=== PATIENT | female | born 1950 | race Caucasian/White ===

== ENCOUNTER 2019-01-26 12:04 | Inpatient (IN) ==
[2019-01-26] MEDS ORDERED: Ondansetron 4 MG/2 ML VIAL IVP PRN (14:19)
[2019-01-26] MEDS ORDERED: Naloxone 0.4 MG/ML INJ IVP PRN (14:19)
[2019-01-26] MEDS ORDERED: Dextrose Gel 15 GM/37.5 ML TUBE PO PRN ×2 (14:22)
[2019-01-26] MEDS ORDERED: *HR* Dextrose 50 % in Water (Syg) 50 ML SYRINGE IVP PRN (14:22)
[2019-01-26] MEDS ORDERED: D5% in Water 1,000 ML IVC PRN (14:22)
[2019-01-26] MEDS ORDERED: D5% in Lactated Ringers 1,000 ML IVC SCH (14:22)
[2019-01-26] MEDS ORDERED: Levalbuterol 1 PUFF INHALER IH PRN (14:40)
[2019-01-26 15:00] LABS: Basophils % 0.2 %; Hematocrit 36.4 % (35.3-44.9); Hemoglobin 12.2 g/dL (11.5-15.4); Immature Granulocytes % 0.7 % (0-4); Lymphocytes # 1.3 K/mcL (0.6-4.6); Lymphocytes % 6.2 %; Mean Corpuscular HGB Conc 33.5 g/dL (31.6-35.5); Mean Corpuscular Hemoglobin 26.5 pg (28.0-33.3); Mean Platelet Volume 9.7 fL (9.4-12.4); Monocytes # 0.5 K/mcL (0.0-1.3); Monocytes % 2.3 %; Neutrophils # 18.9 K/mcL (1.6-8.9); Platelet Count 257 K/mcL (140-400); Red Blood Count 4.61 M/mcL (3.82-4.97); Red Cell Distribution Width 14.3 % (11.5-14.5); Segmented Neutrophils % 90.6 %; White Blood Count 20.8 K/mcL (4.3-11.1)
[2019-01-26 15:10] LABS: INR 1.1
[2019-01-26 15:12] LABS: Activated Partial Thrombo Time 30.6 Seconds (26.0-36.0)
[2019-01-26 15:19] LABS: Chol/HDL Ratio 5.5 (0-4.9); Magnesium 1.7 mg/dL (1.6-2.6); Phosphorous 2.3 mg/dL (2.7-4.5)
[2019-01-26 15:20] LABS: BUN/Creatinine Ratio 10 (6-26); Blood Urea Nitrogen 6 mg/dL (8-23); Calcium 8.8 mg/dL (8.6-10.3); Carbon Dioxide 29 mEq/L (23-29); Chloride 90 mEq/L (98-107); Glucose 107 mg/dL (70-105); Osmolality,Calculated 266 (280-300); Potassium 3.6 mEq/L (3.5-5.1); Sodium 129 mEq/L (136-145); eGFR For African Americans > 60 (> 60); eGFR For Non-African Americans > 60 (> 60)
[2019-01-26 15:28] LABS: Troponin I 0.04 ng/mL (< 0.04)
[2019-01-26] MEDS: 0.9 % Sodium Chloride 1,000 ML IVC SCH (16:14)
[2019-01-26 16:21] LABS: Estimated Average Glucose 114 mg/dl
[2019-01-26 16:24] LABS: Lactate Dehydrogenase 193 Units/L (140-271)
[2019-01-26 16:30] LABS: ABG Base Excess 3 mEq/L (-2 to 3); ABG HCO3 28 mEq/L (21-27); ABG Oxygen Saturation 94 % (95-98); ABG PCO2 44 mmHg (35-45); ABG PH 7.41 pH Units (7.32-7.45); ABG PO2 71 mmHg (85-104); ABG TCO2 29 mEq/L (20-26)
[2019-01-26] MEDS: Piperacillin/Tazobactam 3.375 GM in 0.9 % Sodium Chloride Mini Bag 100 ML IVPB SCH (18:43)
[2019-01-26] MEDS: Insulin LISPRO 300 UNITS/3 ML VIAL SQ SCH ×2 (18:59→23:34)
[2019-01-26 19:11] LABS: Albumin 3.7 g/dL (3.5-5.7); Albumin/Globulin Ratio 1.4 (1.1-2.2); Bilirubin,Direct 0.1 mg/dL (0.0-0.2); Bilirubin,Indirect 0.3 mg/dL (0.0-1.2); Bilirubin,Total 0.4 mg/dL (0.3-1.0); Globulin 2.6 g/dL (2.4-3.5); Total Protein 6.3 g/dL (6.4-8.9)
[2019-01-26] MEDS: Budesonide/Formoterol 160/4.5 1 PUFF INH IH SCH (20:02)
[2019-01-26] MEDS ORDERED: Acetaminophen IV 1,000 MG/100 ML INFUS..BTL IVPB ONE (21:16)
[2019-01-26] MEDS ORDERED: Acetaminophen IV 500 MG/50 ML INFUS..BTL IVPB ONE (23:09)
[2019-01-27] MEDS: Piperacillin/Tazobactam 3.375 GM in 0.9 % Sodium Chloride Mini Bag 100 ML IVPB SCH ×3 (02:57→20:00)
[2019-01-27] MEDS: 0.9 % Sodium Chloride 1,000 ML IVC SCH (02:57)
[2019-01-27] MEDS ORDERED: Acetaminophen IV 1,000 MG/100 ML INFUS..BTL IVPB ONE (04:09)
[2019-01-27] MEDS: Insulin LISPRO 300 UNITS/3 ML VIAL SQ SCH ×3 (05:20→19:21)
[2019-01-27 05:38] LABS: Bilirubin,Urine Negative (Negative); Blood,Urine Negative (Negative); Clarity,Urine Clear (Clear); Color,Urine Yellow (Yellow); Glucose,Urine (UA) Normal (Normal); Ketones,Urine Negative (Negative); Leukocyte Esterase,Urine Negative (Negative); Nitrite,Urine Negative (Negative); Protein,Urine Negative (Neg-Trace); Urobilinogen,Urine Normal (Normal)
[2019-01-27] MEDS: Budesonide/Formoterol 160/4.5 1 PUFF INH IH SCH (07:22)
[2019-01-27 07:34] LABS: Basophils % 0.1 %; Eosinophils % 0.1 %; Hematocrit 32.3 % (35.3-44.9); Hemoglobin 10.9 g/dL (11.5-15.4); Immature Granulocytes % 0.5 % (0-4); Lymphocytes # 1.2 K/mcL (0.6-4.6); Lymphocytes % 5.2 %; Mean Corpuscular HGB Conc 33.7 g/dL (31.6-35.5); Mean Corpuscular Volume 80.1 fL (83.0-100.0); Mean Platelet Volume 9.7 fL (9.4-12.4); Monocytes # 0.5 K/mcL (0.0-1.3); Monocytes % 2.2 %; Neutrophils # 21.8 K/mcL (1.6-8.9); Platelet Count 242 K/mcL (140-400); Red Blood Count 4.03 M/mcL (3.82-4.97); Red Cell Distribution Width 14.7 % (11.5-14.5); Segmented Neutrophils % 91.9 %; White Blood Count 23.7 K/mcL (4.3-11.1)
[2019-01-27 08:03] LABS: BUN/Creatinine Ratio 12 (6-26); Blood Urea Nitrogen 7 mg/dL (8-23); Calcium 8.6 mg/dL (8.6-10.3); Carbon Dioxide 29 mEq/L (23-29); Chloride 94 mEq/L (98-107); Glucose 112 mg/dL (70-105); Magnesium 1.6 mg/dL (1.6-2.6); Osmolality,Calculated 273 (280-300); Phosphorous 3.8 mg/dL (2.7-4.5); Potassium 3.3 mEq/L (3.5-5.1); Sodium 132 mEq/L (136-145); eGFR For African Americans > 60 (> 60); eGFR For Non-African Americans > 60 (> 60)
[2019-01-27] MEDS ORDERED: Metoprolol XL (24 HR) Succ 25 MG TAB.ER.24H PO SCH (09:00)
[2019-01-27] MEDS ORDERED: D5% in 0.9% NACL 1,000 ML IVC SCH (10:30)
[2019-01-27] MEDS ORDERED: Isovue-370 500 ML BOTTLE IVP ONE (11:57)
[2019-01-27] MEDS: *HR* Labetalol 20 MG/4 ML SYRINGE IVP PRN ×2 (11:59→14:27)
[2019-01-27 12:18] LABS: ABG Base Excess 3 mEq/L (-2 to 3); ABG HCO3 29 mEq/L (21-27); ABG Oxygen Saturation 91 % (95-98); ABG PCO2 49 mmHg (35-45); ABG PH 7.38 pH Units (7.32-7.45); ABG PO2 63 mmHg (85-104); ABG TCO2 31 mEq/L (20-26)
[2019-01-27] MEDS ORDERED: Isovue-300 50ML VIAL ONE ×2 (13:50→17:32)
[2019-01-27] MEDS ORDERED: cefOXitin 1,000 MG, 0.9 % Sodium Chloride 1,000 ML IR ONE (14:00)
[2019-01-27] MEDS ORDERED: Morphine Sulfate 2 MG/ML SYRINGE IVP PRN (14:39)
[2019-01-27] MEDS ORDERED: Pantoprazole 40 MG VIAL IVP SCH (14:39)
[2019-01-27] MEDS ORDERED: Perflutren Lipid Microsphere 1.3 ML in 0.9 % Sodium Chloride 8.7 ML IVP ONE (15:53)
[2019-01-27] MEDS ORDERED: CefOXitin 1,000 MG VIAL ONE (16:37)
[2019-01-27] MEDS ORDERED: Lidocaine HCL 4 ML Topical Solution (Laryng-O-Jet Kit Sterile Pak) TP ONE (16:47)
[2019-01-27] MEDS ORDERED: Lidocaine -MPF 2% 2 ML VIAL ONE (16:48)
[2019-01-27] MEDS ORDERED: *HR* Propofol 200 MG/20 ML VIAL IVP ONE (16:48)
[2019-01-27] MEDS ORDERED: *HR* Rocuronium Bromide 50 MG/5 ML VIAL ONE (16:48)
[2019-01-27] MEDS ORDERED: *HR* FentaNYL (PF) 100 MCG/2 ML VIAL ONE ×2 (16:48→16:52)
[2019-01-27] MEDS ORDERED: Ondansetron 4 MG/2 ML VIAL ONE (16:48)
[2019-01-27] MEDS ORDERED: Dexamethasone 4 MG/ML VIAL ONE (16:48)
[2019-01-27] MEDS ORDERED: *HR* Midazolam HCl 2 MG/2 ML VIAL ONE (16:48)
[2019-01-27] MEDS ORDERED: Heparin 1,000 UNITS/500 mL 500 ML ONE (16:50)
[2019-01-27] MEDS ORDERED: Norepinephrine 4 MG in 0.9 % Sodium Chloride 250 ML IVC SCH (17:00)
[2019-01-27] MEDS ORDERED: *HR* Vasopressin 20 UNIT/ML VIAL ONE (17:03)
[2019-01-27] MEDS ORDERED: *HR* Metoprolol 5 MG/5 ML VIAL IVP ONE (18:02)
[2019-01-27] MEDS ORDERED: Ketorolac 30 MG/ML VIAL ONE (18:41)
[2019-01-27] MEDS ORDERED: Neostigmine Methylsulfate 3 MG/3 ML SYRINGE ONE (18:45)
[2019-01-27] MEDS ORDERED: Dextrose Gel 15 GM/37.5 ML TUBE PO PRN ×2 (19:25)
[2019-01-27] MEDS ORDERED: *HR* Labetalol 20 MG/4 ML SYRINGE IVP PRN (19:25)
[2019-01-27] MEDS ORDERED: *HR* Dextrose 50 % in Water (Syg) 50 ML SYRINGE IVP PRN (19:25)
[2019-01-27] MEDS ORDERED: D5% in Water 1,000 ML IVC PRN (19:25)
[2019-01-27] MEDS ORDERED: Levalbuterol 1 PUFF INHALER IH PRN (19:25)
[2019-01-27] MEDS ORDERED: Ondansetron 4 MG/2 ML VIAL IVP PRN (19:25)
[2019-01-27] MEDS ORDERED: Naloxone 0.4 MG/ML INJ IVP PRN (19:25)
[2019-01-27] MEDS ORDERED: Potassium Chloride 40 MEQ/200 ML BAG IVPB PRN (19:37)
[2019-01-27] MEDS ORDERED: Potassium Phosphate 44 MEQ in 0.9 % Sodium Chloride 250 ML IVPB PRN (19:37)
[2019-01-27] MEDS: D5% in 0.9% NACL 1,000 ML IVC SCH (21:19)
[2019-01-28] MEDS: Piperacillin/Tazobactam 3.375 GM in 0.9 % Sodium Chloride Mini Bag 100 ML IVPB SCH ×3 (02:52→19:35)
[2019-01-28 03:58] LABS: Hematocrit 31.3 % (35.3-44.9); Hemoglobin 10.2 g/dL (11.5-15.4); Mean Corpuscular HGB Conc 32.6 g/dL (31.6-35.5); Mean Corpuscular Hemoglobin 27.2 pg (28.0-33.3); Mean Corpuscular Volume 83.5 fL (83.0-100.0); Mean Platelet Volume 10.3 fL (9.4-12.4); Platelet Count 196 K/mcL (140-400); Red Blood Count 3.75 M/mcL (3.82-4.97); White Blood Count 23.5 K/mcL (4.3-11.1)
[2019-01-28 04:18] LABS: Magnesium 2.3 mg/dL (1.6-2.6)
[2019-01-28 04:32] LABS: Thyroid Stimulating Hormone 3.148 mcIU/mL (0.340-5.600)
[2019-01-28 04:55] LABS: Lymphocytes # 0.9 K/mcL (0.6-4.6); Monocytes # 0.5 K/mcL (0.0-1.3); Neutrophils # 20.7 K/mcL (1.6-8.9); Platelet Estimate Normal (Normal); Reactive Lymphocytes Present (Not Present)
[2019-01-28 04:58] LABS: BUN/Creatinine Ratio 15 (6-26); Blood Urea Nitrogen 11 mg/dL (8-23); Calcium 8.7 mg/dL (8.6-10.3); Carbon Dioxide 29 mEq/L (23-29); Chloride 98 mEq/L (98-107); Glucose 163 mg/dL (70-105); Osmolality,Calculated 279 (280-300); Phosphorous 2.5 mg/dL (2.7-4.5); Potassium 4.3 mEq/L (3.5-5.1); Sodium 133 mEq/L (136-145); eGFR For African Americans > 60 (> 60); eGFR For Non-African Americans > 60 (> 60)
[2019-01-28] MEDS: Insulin LISPRO 300 UNITS/3 ML VIAL SQ SCH ×5 (05:58→22:05)
[2019-01-28] MEDS: Metoprolol XL (24 HR) Succ 25 MG TAB.ER.24H PO SCH (08:38)
[2019-01-28] MEDS: Pantoprazole 40 MG VIAL IVP SCH (09:52)
[2019-01-28] MEDS: Furosemide 20 MG/2 ML VIAL IVP SCH (09:53)
[2019-01-28] MEDS: Budesonide/Formoterol 160/4.5 1 PUFF INH IH SCH ×2 (11:50→20:00)
[2019-01-28] MEDS: Aspirin Enteric Coated 81 MG Tablet PO SCH (11:58)
[2019-01-28] MEDS: D5% in 0.9% NACL 1,000 ML IVC SCH (16:10)
[2019-01-28 16:49] LABS: Phosphorous 3.5 mg/dL (2.7-4.5)
[2019-01-29 02:45] LABS: BUN/Creatinine Ratio 20 (6-26); Blood Urea Nitrogen 12 mg/dL (8-23); Calcium 8.7 mg/dL (8.6-10.3); Carbon Dioxide 29 mEq/L (23-29); Chloride 100 mEq/L (98-107); Glucose 121 mg/dL (70-105); Osmolality,Calculated 283 (280-300); Potassium 3.8 mEq/L (3.5-5.1); Sodium 136 mEq/L (136-145); eGFR For African Americans > 60 (> 60); eGFR For Non-African Americans > 60 (> 60)
[2019-01-29 02:48] LABS: Magnesium 2.1 mg/dL (1.6-2.6); Phosphorous 3.1 mg/dL (2.7-4.5)
[2019-01-29] MEDS: Piperacillin/Tazobactam 3.375 GM in 0.9 % Sodium Chloride Mini Bag 100 ML IVPB SCH ×3 (04:39→20:17)
[2019-01-29] MEDS: Budesonide/Formoterol 160/4.5 1 PUFF INH IH SCH ×2 (07:39→20:18)
[2019-01-29] MEDS: Insulin LISPRO 300 UNITS/3 ML VIAL SQ SCH ×4 (07:55→21:12)
[2019-01-29] MEDS: Pantoprazole 40 MG VIAL IVP SCH (08:08)
[2019-01-29] MEDS: Metoprolol XL (24 HR) Succ 25 MG TAB.ER.24H PO SCH (08:08)
[2019-01-29] MEDS: Furosemide 20 MG/2 ML VIAL IVP SCH ×3 (08:08→17:10)
[2019-01-29] MEDS: Aspirin Enteric Coated 81 MG Tablet PO SCH (08:08)
[2019-01-29 08:33] LABS: Basophils % 0.2 %; Eosinophils # 0.2 K/mcL (0.0-0.6); Eosinophils % 1.6 %; Hematocrit 29.7 % (35.3-44.9); Hemoglobin 9.3 g/dL (11.5-15.4); Immature Granulocytes % 0.3 % (0-4); Lymphocytes # 1.9 K/mcL (0.6-4.6); Lymphocytes % 15.7 %; Mean Corpuscular HGB Conc 31.3 g/dL (31.6-35.5); Mean Corpuscular Hemoglobin 26.6 pg (28.0-33.3); Mean Corpuscular Volume 84.9 fL (83.0-100.0); Mean Platelet Volume 10.1 fL (9.4-12.4); Monocytes # 0.6 K/mcL (0.0-1.3); Monocytes % 4.7 %; Neutrophils # 9.2 K/mcL (1.6-8.9); Platelet Count 207 K/mcL (140-400); Red Cell Distribution Width 15.5 % (11.5-14.5); Segmented Neutrophils % 77.5 %; White Blood Count 11.8 K/mcL (4.3-11.1)
[2019-01-29] MEDS ORDERED: Furosemide 20 MG/2 ML VIAL IVP ONE (09:59)
[2019-01-29 13:26] LABS: VBG Ionized Calcium 1.05 mmol/L (1.15-1.35)
[2019-01-29] MEDS: *HR* Heparin 5,000 UNIT/ML VIAL SQ SCH ×2 (15:55→20:17)
[2019-01-29] MEDS: Calcium Gluconate 1gm/50mL 1 GM/50 ML BAG IVPB PRN (17:10)
[2019-01-30 02:07] LABS: Basophils % 0.4 %; Eosinophils # 0.3 K/mcL (0.0-0.6); Eosinophils % 3.6 %; Hematocrit 31.4 % (35.3-44.9); Hemoglobin 9.9 g/dL (11.5-15.4); Immature Granulocytes % 0.6 % (0-4); Lymphocytes # 1.8 K/mcL (0.6-4.6); Lymphocytes % 23.5 %; Mean Corpuscular HGB Conc 31.5 g/dL (31.6-35.5); Mean Corpuscular Hemoglobin 26.5 pg (28.0-33.3); Mean Corpuscular Volume 84.2 fL (83.0-100.0); Mean Platelet Volume 9.5 fL (9.4-12.4); Monocytes # 0.4 K/mcL (0.0-1.3); Monocytes % 5.7 %; Neutrophils # 5.1 K/mcL (1.6-8.9); Platelet Count 230 K/mcL (140-400); Red Blood Count 3.73 M/mcL (3.82-4.97); Red Cell Distribution Width 15.4 % (11.5-14.5); Segmented Neutrophils % 66.2 %; White Blood Count 7.7 K/mcL (4.3-11.1)
[2019-01-30 02:13] LABS: VBG Ionized Calcium 1.04 mmol/L (1.15-1.35)
[2019-01-30 02:26] LABS: BUN/Creatinine Ratio 19 (6-26); Blood Urea Nitrogen 12 mg/dL (8-23); Calcium 8.9 mg/dL (8.6-10.3); Carbon Dioxide 32 mEq/L (23-29); Chloride 97 mEq/L (98-107); Glucose 108 mg/dL (70-105); Magnesium 1.9 mg/dL (1.6-2.6); Osmolality,Calculated 284 (280-300); Phosphorous 3.4 mg/dL (2.7-4.5); Potassium 3.7 mEq/L (3.5-5.1); Sodium 137 mEq/L (136-145); eGFR For African Americans > 60 (> 60); eGFR For Non-African Americans > 60 (> 60)
[2019-01-30] MEDS: Calcium Gluconate 1gm/50mL 1 GM/50 ML BAG IVPB PRN (04:14)
[2019-01-30] MEDS: Piperacillin/Tazobactam 3.375 GM in 0.9 % Sodium Chloride Mini Bag 100 ML IVPB SCH ×3 (04:15→19:34)
[2019-01-30] MEDS: *HR* Heparin 5,000 UNIT/ML VIAL SQ SCH ×2 (05:21→13:40)
[2019-01-30] MEDS: Pantoprazole 40 MG VIAL IVP SCH (07:52)
[2019-01-30] MEDS: Metoprolol XL (24 HR) Succ 25 MG TAB.ER.24H PO SCH (07:52)
[2019-01-30] MEDS: Furosemide 20 MG/2 ML VIAL IVP SCH ×2 (07:52→16:53)
[2019-01-30] MEDS: Aspirin Enteric Coated 81 MG Tablet PO SCH (07:52)
[2019-01-30] MEDS: Insulin LISPRO 300 UNITS/3 ML VIAL SQ SCH ×4 (07:52→19:35)
[2019-01-30] MEDS: Budesonide/Formoterol 160/4.5 1 PUFF INH IH SCH ×2 (11:41→19:41)
[2019-01-30] MEDS: Bisacodyl 10 MG RECTAL SUPPOSITORY RC SCH (13:41)
[2019-01-30 17:19] LABS: VBG Ionized Calcium 1.12 mmol/L (1.15-1.35)
[2019-01-31] MEDS: *HR* Heparin 5,000 UNIT/ML VIAL SQ SCH ×4 (01:16→20:09)
[2019-01-31] MEDS: Piperacillin/Tazobactam 3.375 GM in 0.9 % Sodium Chloride Mini Bag 100 ML IVPB SCH ×3 (03:25→20:08)
[2019-01-31 04:12] LABS: Basophils % 0.4 %; Eosinophils # 0.2 K/mcL (0.0-0.6); Eosinophils % 1.7 %; Hematocrit 34.7 % (35.3-44.9); Hemoglobin 11.3 g/dL (11.5-15.4); Immature Granulocytes % 0.7 % (0-4); Lymphocytes # 1.9 K/mcL (0.6-4.6); Lymphocytes % 17.6 %; Mean Corpuscular HGB Conc 32.6 g/dL (31.6-35.5); Mean Corpuscular Hemoglobin 26.3 pg (28.0-33.3); Mean Corpuscular Volume 80.9 fL (83.0-100.0); Mean Platelet Volume 9.6 fL (9.4-12.4); Monocytes # 0.8 K/mcL (0.0-1.3); Monocytes % 7.1 %; Neutrophils # 7.9 K/mcL (1.6-8.9); Platelet Count 268 K/mcL (140-400); Red Blood Count 4.29 M/mcL (3.82-4.97); Red Cell Distribution Width 15.5 % (11.5-14.5); Segmented Neutrophils % 72.5 %; White Blood Count 10.9 K/mcL (4.3-11.1)
[2019-01-31 04:27] LABS: BUN/Creatinine Ratio 22 (6-26); Blood Urea Nitrogen 14 mg/dL (8-23); Calcium 9.5 mg/dL (8.6-10.3); Carbon Dioxide 32 mEq/L (23-29); Chloride 93 mEq/L (98-107); Glucose 125 mg/dL (70-105); Osmolality,Calculated 284 (280-300); Phosphorous 4.8 mg/dL (2.7-4.5); Potassium 3.4 mEq/L (3.5-5.1); Sodium 136 mEq/L (136-145); eGFR For African Americans > 60 (> 60); eGFR For Non-African Americans > 60 (> 60)
[2019-01-31] MEDS: Metoprolol XL (24 HR) Succ 25 MG TAB.ER.24H PO SCH (07:25)
[2019-01-31] MEDS: Pantoprazole 40 MG VIAL IVP SCH (07:25)
[2019-01-31] MEDS: Bisacodyl 10 MG RECTAL SUPPOSITORY RC SCH (07:25)
[2019-01-31] MEDS: Aspirin Enteric Coated 81 MG Tablet PO SCH (07:25)
[2019-01-31] MEDS: Furosemide 20 MG/2 ML VIAL IVP SCH (07:26)
[2019-01-31] MEDS: Insulin LISPRO 300 UNITS/3 ML VIAL SQ SCH ×5 (07:31→20:09)
[2019-01-31] MEDS: Budesonide/Formoterol 160/4.5 1 PUFF INH IH SCH ×2 (07:50→19:54)
[2019-01-31] MEDS ORDERED: 0.9 % Sodium Chloride 250 ML ONE (08:25)
[2019-01-31] MEDS ORDERED: Insulin LISPRO 300 UNITS/3 ML VIAL SQ SCH (21:00)
[2019-02-01] MEDS: Insulin LISPRO 300 UNITS/3 ML VIAL SQ SCH ×3 (00:59→11:59)
[2019-02-01] MEDS: Piperacillin/Tazobactam 3.375 GM in 0.9 % Sodium Chloride Mini Bag 100 ML IVPB SCH ×2 (03:07→11:02)
[2019-02-01] MEDS: *HR* Heparin 5,000 UNIT/ML VIAL SQ SCH ×2 (05:53→14:27)
[2019-02-01 06:32] LABS: Basophils % 0.4 %; Eosinophils # 0.4 K/mcL (0.0-0.6); Eosinophils % 3.9 %; Hemoglobin 10.7 g/dL (11.5-15.4); Immature Granulocytes % 1.6 % (0-4); Lymphocytes # 2.1 K/mcL (0.6-4.6); Lymphocytes % 21.8 %; Mean Corpuscular HGB Conc 32.4 g/dL (31.6-35.5); Mean Corpuscular Hemoglobin 26.6 pg (28.0-33.3); Mean Corpuscular Volume 81.9 fL (83.0-100.0); Mean Platelet Volume 9.6 fL (9.4-12.4); Monocytes # 0.6 K/mcL (0.0-1.3); Monocytes % 6.3 %; Neutrophils # 6.3 K/mcL (1.6-8.9); Platelet Count 285 K/mcL (140-400); Red Blood Count 4.03 M/mcL (3.82-4.97); Red Cell Distribution Width 15.7 % (11.5-14.5); White Blood Count 9.5 K/mcL (4.3-11.1)
[2019-02-01 06:33] LABS: VBG Ionized Calcium 1.05 mmol/L (1.15-1.35)
[2019-02-01 06:52] LABS: BUN/Creatinine Ratio 24 (6-26); Blood Urea Nitrogen 16 mg/dL (8-23); Carbon Dioxide 28 mEq/L (23-29); Chloride 97 mEq/L (98-107); Glucose 124 mg/dL (70-105); Magnesium 2.1 mg/dL (1.6-2.6); Osmolality,Calculated 289 (280-300); Phosphorous 3.8 mg/dL (2.7-4.5); Potassium 3.3 mEq/L (3.5-5.1); Sodium 138 mEq/L (136-145); eGFR For African Americans > 60 (> 60); eGFR For Non-African Americans > 60 (> 60)
[2019-02-01] MEDS: Calcium Gluconate 1gm/50mL 1 GM/50 ML BAG IVPB PRN (08:05)
[2019-02-01] MEDS: Aspirin Enteric Coated 81 MG Tablet PO SCH (08:05)
[2019-02-01] MEDS: Bisacodyl 10 MG RECTAL SUPPOSITORY RC SCH (08:05)
[2019-02-01] MEDS: Metoprolol XL (24 HR) Succ 25 MG TAB.ER.24H PO SCH (08:05)
[2019-02-01] MEDS: Pantoprazole 40 MG VIAL IVP SCH (08:05)
[2019-02-01] MEDS ORDERED: Furosemide 40 MG TABLET PO SCH (09:00)
[2019-02-01] MEDS: Budesonide/Formoterol 160/4.5 1 PUFF INH IH SCH (11:02)
[2019-02-01 12:51] LABS: Magnesium 2.1 mg/dL (1.6-2.6); Potassium 3.5 mEq/L (3.5-5.1)
[2019-02-01] MEDS ORDERED: Iopamidol 125 ML INFUS..BTL ONE (13:37)
[2019-02-01] MEDS ORDERED: Heparin 1,000 UNITS/500 mL 500 ML ONE (13:37)
[2019-02-01] MEDS ORDERED: 0.9 % Sodium Chloride 1,000 ML ONE (13:37)
[2019-02-01] MEDS ORDERED: *HR* Heparin 10,000 UNIT/10 ML VIAL ONE (13:37)
[2019-02-01] MEDS ORDERED: Nitroglycerin 1,000 MCG/10 ML VIAL IV ONE (13:38)
[2019-02-01] MEDS ORDERED: *HR* FentaNYL (PF) 100 MCG/2 ML VIAL ONE (15:15)
[2019-02-01] MEDS ORDERED: *HR* Midazolam HCl 2 MG/2 ML VIAL ONE (15:15)
[2019-02-01 18:30] VITALS: BP 155/86
== END 2019-02-01 19:09 | disposition home health service (06) | DRG 853 ==
LOC: 2NENU → SUATTDRO 13:40 → ICNU 01-27 18:29 → 2NNU 01-28 15:44
PROVIDERS: ADMIT Internal Medicine Nephrology; ATTEND Internal Medicine

== ENCOUNTER 2019-12-28 13:39 | Inpatient (IN) ==
[2019-12-28] MEDS ORDERED: Naloxone 0.4 MG/ML INJ IVP PRN (16:04)
[2019-12-28 16:23] LABS: Adenovirus Not Detected (Not Detect); Coronavirus 229E Not Detected (Not Detect); Coronavirus HKU1 Not Detected (Not Detect); Coronavirus NL63 Not Detected (Not Detect); Coronavirus OC43 Not Detected (Not Detect)
[2019-12-28 16:24] LABS: Bordetella Pertussis Not Detected (Not Detect); Chlamydophila pneumoniae Not Detected (Not Detect); Human Metapneumovirus Not Detected (Not Detect); Human Rhinovirus/Enterovirus Not Detected (Not Detect); Influenza A Subtype 2009 H1 Not Detected (Not Detect); Influenza B Not Detected (Not Detect); Mycoplasma pneumoniae Not Detected (Not Detect); Parainfluenza Virus 1 Not Detected (Not Detect); Parainfluenza Virus 2 Not Detected (Not Detect); Parainfluenza Virus 3 Not Detected (Not Detect); Parainfluenza Virus 4 Not Detected (Not Detect); Respiratory Syncytial Virus Not Detected (Not Detect); SARS-CoV-2 Not Detected (Not Detect)
[2019-12-28 17:45] LABS: Troponin I 0.08 ng/mL (< 0.04)
[2019-12-28] MEDS ORDERED: Ondansetron ODT 4 MG TAB.RAPDIS SL PRN (17:47)
[2019-12-28] MEDS: cefTRIAXone 1,000 MG in Water for inj. (sterile) 10 ML IVP SCH (18:53)
[2019-12-28] MEDS: 0.9 % Sodium Chloride 1,000 ML IVC SCH (18:54)
[2019-12-29 02:09] LABS: Basophils # 0.1 K/mcL (0.0-0.2); Basophils % 0.4 %; Eosinophils # 1.1 K/mcL (0.0-0.6); Eosinophils % 7.4 %; Hematocrit 35.7 % (35.3-44.9); Hemoglobin 11.4 g/dL (11.5-15.4); Immature Granulocytes % 0.9 % (0-4); Lymphocytes # 2.1 K/mcL (0.6-4.6); Lymphocytes % 15.2 %; Mean Corpuscular HGB Conc 31.9 g/dL (31.6-35.5); Mean Corpuscular Hemoglobin 27.5 pg (28.0-33.3); Mean Platelet Volume 10.2 fL (9.4-12.4); Monocytes # 0.6 K/mcL (0.0-1.3); Monocytes % 4.1 %; Neutrophils # 10.2 K/mcL (1.6-8.9); Nucleated Red Blood Cells 0.1 /100 WBC (0); Platelet Count 191 K/mcL (140-400); Red Blood Count 4.15 M/mcL (3.82-4.97); Red Cell Distribution Width 14.3 % (11.5-14.5); White Blood Count 14.1 K/mcL (4.3-11.1)
[2019-12-29 02:26] LABS: Calcium 8.3 mg/dL (8.6-10.3); Potassium 3.4 mEq/L (3.5-5.1)
[2019-12-29] MEDS ORDERED: Ipratropium/Albuterol Neb 3 ML IH PRN (04:28)
[2019-12-29] MEDS ORDERED: *HR* Heparin 5,000 UNIT/ML VIAL SQ SCH (06:00)
[2019-12-29 06:52] LABS: Magnesium 1.9 mg/dL (1.6-2.6); Troponin I 0.07 ng/mL (< 0.04)
[2019-12-29] MEDS: Budesonide/Formoterol 160/4.5 1 PUFF INH IH SCH ×2 (07:32→21:49)
[2019-12-29] MEDS: Aspirin Enteric Coated 81 MG Tablet PO SCH (07:59)
[2019-12-29] MEDS: cefTRIAXone 1,000 MG in Water for inj. (sterile) 10 ML IVP SCH (08:06)
[2019-12-29] MEDS: 0.9 % Sodium Chloride 1,000 ML IVC SCH (08:06)
[2019-12-29] MEDS: Gentamicin Oint 15 GM TUBE TP SCH (16:02)
[2019-12-29] MEDS: *HR* Heparin 5,000 UNIT/ML VIAL SQ SCH (17:19)
[2019-12-30 02:06] LABS: Basophils % 0.4 %; Eosinophils # 0.8 K/mcL (0.0-0.6); Eosinophils % 8.4 %; Hematocrit 31.9 % (35.3-44.9); Hemoglobin 10.2 g/dL (11.5-15.4); Immature Granulocytes % 0.3 % (0-4); Lymphocytes # 1.7 K/mcL (0.6-4.6); Lymphocytes % 16.8 %; Mean Corpuscular Volume 87.6 fL (83.0-100.0); Mean Platelet Volume 10.8 fL (9.4-12.4); Monocytes # 0.4 K/mcL (0.0-1.3); Monocytes % 3.8 %; Platelet Count 156 K/mcL (140-400); Red Blood Count 3.64 M/mcL (3.82-4.97); Red Cell Distribution Width 14.1 % (11.5-14.5); Segmented Neutrophils % 70.3 %; White Blood Count 9.9 K/mcL (4.3-11.1)
[2019-12-30 02:23] LABS: BUN/Creatinine Ratio 23 (6-26); Blood Urea Nitrogen 18 mg/dL (8-23); Calcium 8.7 mg/dL (8.6-10.3); Carbon Dioxide 26 mEq/L (23-29); Chloride 103 mEq/L (98-107); Creatine Kinase 142 Units/L (30-223); Glucose 124 mg/dL (70-105); Osmolality,Calculated 289 (280-300); Potassium 3.8 mEq/L (3.5-5.1); Sodium 138 mEq/L (136-145); eGFR For African Americans > 60 (> 60); eGFR For Non-African Americans > 60 (> 60)
[2019-12-30] MEDS: *HR* Heparin 5,000 UNIT/ML VIAL SQ SCH ×2 (05:56→17:42)
[2019-12-30] MEDS: Budesonide/Formoterol 160/4.5 1 PUFF INH IH SCH ×2 (08:01→21:23)
[2019-12-30] MEDS: Aspirin Enteric Coated 81 MG Tablet PO SCH (09:05)
[2019-12-30] MEDS: Gentamicin Oint 15 GM TUBE TP SCH (09:06)
[2019-12-30] MEDS ORDERED: Mag Hydrox/Al Hydrox/Simeth 30 ML UDC PO PRN (10:15)
[2019-12-30 10:59] LABS: Alanine Aminotransferase 18 Units/L (7-52); Albumin 3.3 g/dL (3.5-5.7); Albumin/Globulin Ratio 1.3 (1.1-2.2); Alkaline Phosphatase 107 Units/L (34-104); Aspartate Amino Transferase 21 Units/L (13-39); Bilirubin,Indirect 0.3 mg/dL (0.0-1.0); Bilirubin,Total 0.3 mg/dL (0.3-1.0); Globulin 2.5 g/dL (2.4-3.5); Total Protein 5.8 g/dL (6.4-8.9)
[2019-12-30] MEDS: Acetaminophen 325 MG TABLET PO PRN (19:40)
[2019-12-30] MEDS ORDERED: QUEtiapine Fumarate 25 MG TABLET PO PRN (20:20)
[2019-12-31] MEDS: *HR* Heparin 5,000 UNIT/ML VIAL SQ SCH ×2 (05:26→17:00)
[2019-12-31 06:48] LABS: Basophils # 0.1 K/mcL (0.0-0.2); Basophils % 0.7 %; Eosinophils # 0.7 K/mcL (0.0-0.6); Eosinophils % 10.2 %; Hematocrit 32.8 % (35.3-44.9); Hemoglobin 10.6 g/dL (11.5-15.4); Immature Granulocytes % 0.8 % (0-4); Lymphocytes # 1.9 K/mcL (0.6-4.6); Lymphocytes % 26.7 %; Mean Corpuscular HGB Conc 32.3 g/dL (31.6-35.5); Mean Corpuscular Hemoglobin 27.8 pg (28.0-33.3); Mean Corpuscular Volume 86.1 fL (83.0-100.0); Mean Platelet Volume 10.8 fL (9.4-12.4); Monocytes # 0.4 K/mcL (0.0-1.3); Monocytes % 5.5 %; Platelet Count 152 K/mcL (140-400); Red Blood Count 3.81 M/mcL (3.82-4.97); Red Cell Distribution Width 14.1 % (11.5-14.5); Segmented Neutrophils % 56.1 %; White Blood Count 7.1 K/mcL (4.3-11.1)
[2019-12-31 07:00] LABS: BUN/Creatinine Ratio 21 (6-26); Blood Urea Nitrogen 14 mg/dL (8-23); Calcium 9.1 mg/dL (8.6-10.3); Carbon Dioxide 28 mEq/L (23-29); Chloride 103 mEq/L (98-107); Glucose 111 mg/dL (70-105); Osmolality,Calculated 289 (280-300); Potassium 4.5 mEq/L (3.5-5.1); Sodium 139 mEq/L (136-145); eGFR For African Americans > 60 (> 60); eGFR For Non-African Americans > 60 (> 60)
[2019-12-31] MEDS: Budesonide/Formoterol 160/4.5 1 PUFF INH IH SCH ×2 (08:14→19:49)
[2019-12-31] MEDS: Aspirin Enteric Coated 81 MG Tablet PO SCH (09:38)
[2019-12-31] MEDS: Gentamicin Oint 15 GM TUBE TP SCH (09:45)
[2019-12-31] MEDS: Furosemide 20 MG TABLET PO SCH ×2 (14:37→20:39)
[2019-12-31] MEDS: diazePAM 10 MG TABLET PO SCH ×2 (14:37→20:38)
[2019-12-31] MEDS: OXcarbazepine 150 MG TABLET PO SCH ×2 (14:37→20:39)
[2019-12-31] MEDS: hydrOXYzine pamoate 25 MG CAPSULE PO SCH (14:37)
[2019-12-31] MEDS: Pregabalin 75 MG CAPSULE PO SCH (20:39)
[2020-01-01] MEDS: *HR* Heparin 5,000 UNIT/ML VIAL SQ SCH ×2 (05:32→16:27)
[2020-01-01] MEDS: Perphenazine 2 MG TABLET PO SCH (07:34)
[2020-01-01] MEDS: Cyanocobalamin (B-12) 1,000 MCG TABLET PO SCH (07:35)
[2020-01-01] MEDS: Metoprolol XL (24 HR) Succ 50 MG TAB.ER.24H PO SCH (07:35)
[2020-01-01] MEDS: lisinopriL 10 MG TABLET PO SCH (07:35)
[2020-01-01] MEDS: Aspirin Enteric Coated 81 MG Tablet PO SCH (07:35)
[2020-01-01] MEDS: Pregabalin 75 MG CAPSULE PO SCH ×2 (07:35→20:57)
[2020-01-01] MEDS: Gentamicin Oint 15 GM TUBE TP SCH (07:36)
[2020-01-01] MEDS: Budesonide/Formoterol 160/4.5 1 PUFF INH IH SCH ×2 (08:06→20:10)
[2020-01-01] MEDS: hydrOXYzine pamoate 25 MG CAPSULE PO SCH (16:24)
[2020-01-01] MEDS: OXcarbazepine 150 MG TABLET PO SCH ×2 (16:25→20:57)
[2020-01-01] MEDS: diazePAM 10 MG TABLET PO SCH ×2 (16:27→20:56)
[2020-01-01] MEDS: Furosemide 20 MG TABLET PO SCH ×2 (16:27→20:57)
[2020-01-02] MEDS: *HR* Heparin 5,000 UNIT/ML VIAL SQ SCH ×2 (05:25→16:18)
[2020-01-02] MEDS ORDERED: 0.9 % Sodium Chloride 250 ML IVC ONE (08:13)
[2020-01-02] MEDS: Cyanocobalamin (B-12) 1,000 MCG TABLET PO SCH (09:54)
[2020-01-02] MEDS: Aspirin Enteric Coated 81 MG Tablet PO SCH (09:54)
[2020-01-02] MEDS: Perphenazine 2 MG TABLET PO SCH (09:54)
[2020-01-02] MEDS: Metoprolol XL (24 HR) Succ 50 MG TAB.ER.24H PO SCH (09:55)
[2020-01-02] MEDS: lisinopriL 10 MG TABLET PO SCH (09:55)
[2020-01-02] MEDS: Gentamicin Oint 15 GM TUBE TP SCH (09:55)
[2020-01-02] MEDS: Pregabalin 75 MG CAPSULE PO SCH ×2 (10:00→20:18)
[2020-01-02] MEDS: Budesonide/Formoterol 160/4.5 1 PUFF INH IH SCH ×2 (11:44→21:46)
[2020-01-02 14:43] LABS: Bilirubin,Urine Negative (Negative); Blood,Urine Negative (Negative); Clarity,Urine Clear (Clear); Color,Urine Yellow (Yellow); Glucose,Urine (UA) Normal (Normal); Hyaline Casts,Urine Moderate per lpf (None Seen); Ketones,Urine Negative (Negative); Leukocyte Esterase,Urine Trace (Negative); Mucus,Urine Few per lpf (None-Few); Nitrite,Urine Negative (Negative); PH,Urine 5.5 pH Units (5.0-8.0); Protein,Urine 30 mg/dL (Neg-Trace); Specific Gravity,Urine 1.023 (1.010-1.025); Squamous Epithelial Cell,Urine Few per hpf (None-Few); Urobilinogen,Urine Normal (Normal)
[2020-01-02] MEDS: OXcarbazepine 150 MG TABLET PO SCH ×2 (15:01→20:17)
[2020-01-02] MEDS: Furosemide 20 MG TABLET PO SCH ×2 (15:01→20:17)
[2020-01-02] MEDS: diazePAM 10 MG TABLET PO SCH ×2 (15:01→20:18)
[2020-01-02] MEDS: hydrOXYzine pamoate 25 MG CAPSULE PO SCH (15:01)
[2020-01-03] MEDS: *HR* Heparin 5,000 UNIT/ML VIAL SQ SCH ×2 (04:59→17:11)
[2020-01-03 05:47] LABS: Hematocrit 31.5 % (35.3-44.9); Hemoglobin 9.9 g/dL (11.5-15.4); Mean Corpuscular HGB Conc 31.4 g/dL (31.6-35.5); Mean Corpuscular Hemoglobin 27.8 pg (28.0-33.3); Mean Corpuscular Volume 88.5 fL (83.0-100.0); Mean Platelet Volume 11.2 fL (9.4-12.4); Platelet Count 144 K/mcL (140-400); Red Blood Count 3.56 M/mcL (3.82-4.97); Red Cell Distribution Width 14.2 % (11.5-14.5); White Blood Count 9.8 K/mcL (4.3-11.1)
[2020-01-03] MEDS: Budesonide/Formoterol 160/4.5 1 PUFF INH IH SCH ×2 (08:05→19:45)
[2020-01-03] MEDS: Perphenazine 2 MG TABLET PO SCH (09:19)
[2020-01-03] MEDS: lisinopriL 10 MG TABLET PO SCH (09:19)
[2020-01-03] MEDS: Cyanocobalamin (B-12) 1,000 MCG TABLET PO SCH (09:19)
[2020-01-03] MEDS: Aspirin Enteric Coated 81 MG Tablet PO SCH (09:19)
[2020-01-03] MEDS: Gentamicin Oint 15 GM TUBE TP SCH (09:20)
[2020-01-03] MEDS: Metoprolol XL (24 HR) Succ 50 MG TAB.ER.24H PO SCH (09:22)
[2020-01-03] MEDS: Pregabalin 75 MG CAPSULE PO SCH ×2 (09:25→21:00)
[2020-01-03] MEDS: Furosemide 20 MG TABLET PO SCH ×2 (15:13→21:00)
[2020-01-03] MEDS: hydrOXYzine pamoate 25 MG CAPSULE PO SCH (15:13)
[2020-01-03] MEDS: OXcarbazepine 150 MG TABLET PO SCH ×2 (15:13→21:00)
[2020-01-03] MEDS: diazePAM 10 MG TABLET PO SCH ×2 (15:13→21:00)
[2020-01-04] MEDS: Acetaminophen 325 MG TABLET PO PRN (04:24)
[2020-01-04] MEDS: *HR* Heparin 5,000 UNIT/ML VIAL SQ SCH (05:59)
[2020-01-04 06:07] LABS: Hematocrit 29.6 % (35.3-44.9); Hemoglobin 9.4 g/dL (11.5-15.4)
[2020-01-04] MEDS ORDERED: Chloraseptic Spray 177 ML BOTTLE MM PRN (08:05)
[2020-01-04 09:33] LABS: Hematocrit 31.3 % (35.3-44.9); Mean Corpuscular HGB Conc 31.9 g/dL (31.6-35.5); Mean Corpuscular Hemoglobin 28.2 pg (28.0-33.3); Mean Corpuscular Volume 88.4 fL (83.0-100.0); Mean Platelet Volume 10.9 fL (9.4-12.4); Platelet Count 197 K/mcL (140-400); Red Blood Count 3.54 M/mcL (3.82-4.97); White Blood Count 9.2 K/mcL (4.3-11.1)
[2020-01-04] MEDS: lisinopriL 10 MG TABLET PO SCH (09:36)
[2020-01-04] MEDS: Cyanocobalamin (B-12) 1,000 MCG TABLET PO SCH (09:36)
[2020-01-04] MEDS: Aspirin Enteric Coated 81 MG Tablet PO SCH (09:36)
[2020-01-04] MEDS: Perphenazine 2 MG TABLET PO SCH (09:36)
[2020-01-04] MEDS: Gentamicin Oint 15 GM TUBE TP SCH (09:37)
[2020-01-04] MEDS: Metoprolol XL (24 HR) Succ 50 MG TAB.ER.24H PO SCH (09:38)
[2020-01-04] MEDS: Pregabalin 75 MG CAPSULE PO SCH (09:42)
[2020-01-04 09:49] LABS: BUN/Creatinine Ratio 33 (6-26); Blood Urea Nitrogen 36 mg/dL (8-23); Carbon Dioxide 30 mEq/L (23-29); Chloride 98 mEq/L (98-107); Glucose 122 mg/dL (70-105); Osmolality,Calculated 292 (280-300); Potassium 3.5 mEq/L (3.5-5.1); Sodium 136 mEq/L (136-145); eGFR For African Americans > 60 (> 60); eGFR For Non-African Americans 50 (> 60)
[2020-01-04] MEDS ORDERED: 0.9 % Sodium Chloride 1,000 ML IVC ONE (09:59)
[2020-01-04] MEDS: Budesonide/Formoterol 160/4.5 1 PUFF INH IH SCH (10:40)
[2020-01-04 12:33] LABS: Bacteria,Urine Few per hpf (None-Few); Bilirubin,Urine Negative (Negative); Blood,Urine Small (Negative); Clarity,Urine Turbid (Clear); Color,Urine Light-Yellow (Yellow); Glucose,Urine (UA) Normal (Normal); Ketones,Urine Negative (Negative); Leukocyte Esterase,Urine Trace (Negative); Mucus,Urine Few per lpf (None-Few); Nitrite,Urine Negative (Negative); PH,Urine 5.5 pH Units (5.0-8.0); Protein,Urine Trace mg/dL (Neg-Trace); RBC,Urine 15-30 per hpf (0-3); Specific Gravity,Urine 1.019 (1.010-1.025); Squamous Epithelial Cell,Urine Few per hpf (None-Few); Urobilinogen,Urine Normal (Normal)
[2020-01-04 14:14] VITALS: BP 103/64
[2020-01-04] MEDS: hydrOXYzine pamoate 25 MG CAPSULE PO SCH (15:16)
[2020-01-04] MEDS: diazePAM 10 MG TABLET PO SCH (15:16)
[2020-01-04] MEDS: Furosemide 20 MG TABLET PO SCH (15:16)
[2020-01-04] MEDS: OXcarbazepine 150 MG TABLET PO SCH (15:16)
[2020-01-04 16:13] LABS: Adenovirus Not Detected (Not Detect); Bordetella Pertussis Not Detected (Not Detect); Chlamydophila pneumoniae Not Detected (Not Detect); Coronavirus 229E Not Detected (Not Detect); Coronavirus HKU1 Not Detected (Not Detect); Coronavirus NL63 Not Detected (Not Detect); Coronavirus OC43 Not Detected (Not Detect); Human Metapneumovirus Not Detected (Not Detect); Human Rhinovirus/Enterovirus Not Detected (Not Detect); Influenza A Subtype 2009 H1 Not Detected (Not Detect); Influenza B Not Detected (Not Detect); Mycoplasma pneumoniae Not Detected (Not Detect); Parainfluenza Virus 1 Not Detected (Not Detect); Parainfluenza Virus 2 Not Detected (Not Detect); Parainfluenza Virus 3 Not Detected (Not Detect); Parainfluenza Virus 4 Not Detected (Not Detect); Respiratory Syncytial Virus Not Detected (Not Detect)
[2020-01-04 16:15] LABS: SARS-CoV-2 Not Detected (Not Detect)
[2020-01-05 11:33] LABS: Acinetobacter baumannii by PCR Not Detected (Not Detect); Enterobacter cloacae Cmplx PCR Not Detected (Not Detect); Enterobacteriaceae by PCR Not Detected (Not Detect); Enterococcus by PCR Not Detected (Not Detect); Escherichia coli by PCR Not Detected (Not Detect); Klebsiella oxytoca by PCR Not Detected (Not Detect); Klebsiella pneumoniae by PCR Not Detected (Not Detect); Proteus by PCR Not Detected (Not Detect); Serratia marcescens by PCR Not Detected (Not Detect); Staphylococcus aureus by PCR Not Detected (Not Detect); Staphylococcus by PCR DETECTED (Not Detect); Streptococcus agalactiae(B)PCR Not Detected (Not Detect); Streptococcus by PCR Not Detected (Not Detect); Streptococcus pneumoniae PCR Not Detected (Not Detect); Streptococcus pyogenes (A) PCR Not Detected (Not Detect); mecA Methicillin-Resist Gene DETECTED (Not Detect)
[2020-01-05 11:34] LABS: Candida albicans by PCR Not Detected (Not Detect); Candida glabrata by PCR Not Detected (Not Detect); Candida krusei by PCR Not Detected (Not Detect); Candida parapsilosis by PCR Not Detected (Not Detect); Candida tropicalis by PCR Not Detected (Not Detect); Pseudomonas aeruginosa by PCR Not Detected (Not Detect)
== END 2020-01-04 16:52 | DRG 871 ==
LOC: CDU → 2ANU 17:17 → SUATTDRO 12-29 15:32 → 2ANU 12-30 20:09
PROVIDERS: ADMIT Internal Medicine; ATTEND Internal Medicine

== ENCOUNTER 2020-01-25 14:04 | Inpatient (IN) ==
[2020-01-25] MEDS ORDERED: cefTRIAXone 1,000 MG in Water for inj. (sterile) 10 ML IVP ONE (14:19)
[2020-01-25 14:29] LABS: Basophils % 0.4 %; Eosinophils # 0.3 K/mcL (0.0-0.6); Eosinophils % 4.2 %; Hematocrit 26.3 % (35.3-44.9); Hemoglobin 8.4 g/dL (11.5-15.4); Lymphocytes # 1.8 K/mcL (0.6-4.6); Lymphocytes % 22.1 %; Mean Corpuscular HGB Conc 31.9 g/dL (31.6-35.5); Mean Corpuscular Hemoglobin 26.8 pg (28.0-33.3); Mean Platelet Volume 9.7 fL (9.4-12.4); Monocytes # 0.7 K/mcL (0.0-1.3); Monocytes % 8.7 %; Neutrophils # 5.2 K/mcL (1.6-8.9); Platelet Count 215 K/mcL (140-400); Red Blood Count 3.13 M/mcL (3.82-4.97); Red Cell Distribution Width 14.6 % (11.5-14.5); Segmented Neutrophils % 63.6 %; White Blood Count 8.2 K/mcL (4.3-11.1)
[2020-01-25 14:40] LABS: INR 1.2; Prothrombin Time 13.4 Seconds (9.4-12.1)
[2020-01-25 14:43] LABS: Activated Partial Thrombo Time 29.2 Seconds (26.0-36.0)
[2020-01-25 14:47] LABS: Bacteria,Urine Few per hpf (None-Few); Bilirubin,Urine Negative (Negative); Blood,Urine Moderate (Negative); Clarity,Urine Clear (Clear); Color,Urine Light-Yellow (Yellow); Glucose,Urine (UA) Normal (Normal); Ketones,Urine Negative (Negative); Leukocyte Esterase,Urine Moderate (Negative); Mucus,Urine Few per lpf (None-Few); Nitrite,Urine Negative (Negative); PH,Urine 6.5 pH Units (5.0-8.0); Protein,Urine 50 mg/dL (Neg-Trace); RBC,Urine TNTC per hpf (0-3); Specific Gravity,Urine 1.014 (1.010-1.025); Squamous Epithelial Cell,Urine Few per hpf (None-Few); Urobilinogen,Urine Normal (Normal); WBC,Urine 15-30 per hpf (0-3)
[2020-01-25 14:52] LABS: Amphetamine Screen,Urine Negative ng/mL (Cutoff=1000); Barbiturate Screen,Urine Negative ng/mL (Cutoff=200); Benzodiazepines Screen,Urine Positive ng/mL (Cutoff=200); Cannabinoid Screen,Urine Negative ng/mL (Cutoff = 50); Cocaine Screen,Urine Negative ng/mL (Cutoff= 300); Opiate Screen,Urine Negative ng/mL (Cutoff=300); Phencyclidine Screen,Urine Negative ng/mL (Cutoff=25)
[2020-01-25 15:15] LABS: Alanine Aminotransferase 41 Units/L (7-52); Albumin 2.8 g/dL (3.5-5.7); Alkaline Phosphatase 109 Units/L (34-104); Aspartate Amino Transferase 47 Units/L (13-39); BUN/Creatinine Ratio 22 (6-26); Bilirubin,Indirect 0.3 mg/dL (0.0-1.0); Bilirubin,Total 0.3 mg/dL (0.3-1.0); Blood Urea Nitrogen 17 mg/dL (8-23); Calcium 8.1 mg/dL (8.6-10.3); Carbon Dioxide 36 mEq/L (23-29); Chloride 89 mEq/L (98-107); Creatine Kinase 15 Units/L (30-223); Ethanol < 10 mg/dL (Less than 10); Globulin 2.8 g/dL (2.4-3.5); Glucose 112 mg/dL (70-105); Osmolality,Calculated 268 (280-300); Potassium 4.3 mEq/L (3.5-5.1); Sodium 128 mEq/L (136-145); Total Protein 5.6 g/dL (6.4-8.9); eGFR For African Americans > 60 (> 60); eGFR For Non-African Americans > 60 (> 60)
[2020-01-25 15:16] LABS: Troponin I < 0.03 ng/mL (< 0.04)
[2020-01-25 15:29] LABS: Thyroid Stimulating Hormone 3.445 mcIU/mL (0.340-5.600)
[2020-01-25] MEDS ORDERED: Naloxone 0.4 MG/ML INJ IVP PRN (18:14)
[2020-01-25] MEDS ORDERED: Acetaminophen 325 MG TABLET PO PRN (18:33)
[2020-01-25] MEDS ORDERED: Ondansetron ODT 4 MG TAB.RAPDIS SL PRN (18:33)
[2020-01-25] MEDS: Budesonide/Formoterol 160/4.5 1 PUFF INH IH SCH (20:23)
[2020-01-25] MEDS: OXcarbazepine 150 MG TABLET PO SCH (21:51)
[2020-01-25] MEDS: *HR* Heparin 5,000 UNIT/ML VIAL SQ SCH (21:51)
[2020-01-25] MEDS: Pregabalin 75 MG CAPSULE PO SCH (21:51)
[2020-01-26] MEDS: *HR* Heparin 5,000 UNIT/ML VIAL SQ SCH ×3 (05:50→20:58)
[2020-01-26 06:15] LABS: BUN/Creatinine Ratio 25 (6-26); Blood Urea Nitrogen 13 mg/dL (8-23); Calcium 8.2 mg/dL (8.6-10.3); Carbon Dioxide 32 mEq/L (23-29); Chloride 91 mEq/L (98-107); Glucose 99 mg/dL (70-105); Osmolality,Calculated 268 (280-300); Sodium 129 mEq/L (136-145); eGFR For African Americans > 60 (> 60); eGFR For Non-African Americans > 60 (> 60)
[2020-01-26 07:47] LABS: Basophils % 0.2 %; Eosinophils # 0.3 K/mcL (0.0-0.6); Eosinophils % 5.7 %; Hematocrit 24.3 % (35.3-44.9); Hemoglobin 7.8 g/dL (11.5-15.4); Immature Granulocytes % 0.9 % (0-4); Lymphocytes % 17.4 %; Mean Corpuscular HGB Conc 32.1 g/dL (31.6-35.5); Mean Corpuscular Hemoglobin 27.5 pg (28.0-33.3); Mean Corpuscular Volume 85.6 fL (83.0-100.0); Mean Platelet Volume 10.3 fL (9.4-12.4); Monocytes # 0.5 K/mcL (0.0-1.3); Monocytes % 8.1 %; Neutrophils # 3.9 K/mcL (1.6-8.9); Platelet Count 186 K/mcL (140-400); Red Blood Count 2.84 M/mcL (3.82-4.97); Red Cell Distribution Width 14.1 % (11.5-14.5); Segmented Neutrophils % 67.7 %; White Blood Count 5.8 K/mcL (4.3-11.1)
[2020-01-26] MEDS ORDERED: 0.9 % Sodium Chloride 250 ML IVC SCH (08:15)
[2020-01-26] MEDS: Aspirin Enteric Coated 81 MG Tablet PO SCH (09:28)
[2020-01-26] MEDS: Cyanocobalamin (B-12) 1,000 MCG TABLET PO SCH (09:28)
[2020-01-26] MEDS: lisinopriL 10 MG TABLET PO SCH (09:28)
[2020-01-26] MEDS: Pregabalin 75 MG CAPSULE PO SCH ×2 (09:28→20:57)
[2020-01-26] MEDS: Perphenazine 2 MG TABLET PO SCH (09:28)
[2020-01-26] MEDS: Metoprolol XL (24 HR) Succ 50 MG TAB.ER.24H PO SCH (09:29)
[2020-01-26] MEDS: Budesonide/Formoterol 160/4.5 1 PUFF INH IH SCH ×2 (10:43→19:52)
[2020-01-26] MEDS ORDERED: Furosemide 20 MG TABLET PO SCH (14:00)
[2020-01-26] MEDS ORDERED: cefTRIAXone 1,000 MG in Water for inj. (sterile) 10 ML IVP SCH (14:00)
[2020-01-26] MEDS: OXcarbazepine 150 MG TABLET PO SCH ×2 (16:52→20:57)
[2020-01-26] MEDS ORDERED: diazePAM 5 MG TABLET PO SCH (20:00)
[2020-01-27 01:37] LABS: Basophils % 0.1 %; Eosinophils # 0.3 K/mcL (0.0-0.6); Eosinophils % 3.8 %; Hemoglobin 7.2 g/dL (11.5-15.4); Immature Granulocytes % 0.7 % (0-4); Lymphocytes # 1.8 K/mcL (0.6-4.6); Lymphocytes % 25.3 %; Mean Corpuscular HGB Conc 31.3 g/dL (31.6-35.5); Mean Corpuscular Hemoglobin 26.4 pg (28.0-33.3); Mean Corpuscular Volume 84.2 fL (83.0-100.0); Mean Platelet Volume 10.3 fL (9.4-12.4); Monocytes # 0.5 K/mcL (0.0-1.3); Monocytes % 7.7 %; Neutrophils # 4.3 K/mcL (1.6-8.9); Platelet Count 210 K/mcL (140-400); Red Blood Count 2.73 M/mcL (3.82-4.97); Red Cell Distribution Width 14.3 % (11.5-14.5); Segmented Neutrophils % 62.4 %; White Blood Count 6.9 K/mcL (4.3-11.1)
[2020-01-27 01:55] LABS: BUN/Creatinine Ratio 22 (6-26); Blood Urea Nitrogen 12 mg/dL (8-23); Calcium 7.9 mg/dL (8.6-10.3); Carbon Dioxide 32 mEq/L (23-29); Chloride 91 mEq/L (98-107); Glucose 112 mg/dL (70-105); Osmolality,Calculated 267 (280-300); Sodium 128 mEq/L (136-145); eGFR For African Americans > 60 (> 60); eGFR For Non-African Americans > 60 (> 60)
[2020-01-27] MEDS: *HR* Heparin 5,000 UNIT/ML VIAL SQ SCH (05:06)
[2020-01-27] MEDS: Perphenazine 2 MG TABLET PO SCH (08:39)
[2020-01-27] MEDS: Aspirin Enteric Coated 81 MG Tablet PO SCH (08:39)
[2020-01-27] MEDS: Metoprolol XL (24 HR) Succ 50 MG TAB.ER.24H PO SCH (08:39)
[2020-01-27] MEDS: lisinopriL 10 MG TABLET PO SCH (08:39)
[2020-01-27] MEDS: Pregabalin 75 MG CAPSULE PO SCH (08:40)
[2020-01-27] MEDS: Cyanocobalamin (B-12) 1,000 MCG TABLET PO SCH (08:40)
[2020-01-27] MEDS: Budesonide/Formoterol 160/4.5 1 PUFF INH IH SCH (10:31)
[2020-01-27 11:23] VITALS: BP 118/70
== END 2020-01-27 14:31 | DRG 948 ==
LOC: 2ANU 14:04 → EMEROOARM 14:04 → SUATTDRO 19:18 → 2ANU 20:30
PROVIDERS: ADMIT Internal Medicine; ATTEND Internal Medicine

== ENCOUNTER 2020-07-12 17:17 | Inpatient (IN) ==
[2020-07-12] MEDS ORDERED: Naloxone 0.4 MG/ML INJ IVP PRN (18:54)
[2020-07-12] MEDS ORDERED: Isovue-370 500 ML BOTTLE IVP ONE ×2 (19:59→20:00)
[2020-07-12] MEDS ORDERED: 0.9 % Sodium Chloride 1,000 ML IVC ONE (20:01)
[2020-07-12 20:51] LABS: BUN/Creatinine Ratio 22 (6-26); Blood Urea Nitrogen 14 mg/dL (8-23); Calcium 9.2 mg/dL (8.6-10.3); Carbon Dioxide 29 mEq/L (23-29); Chloride 90 mEq/L (98-107); Glucose 108 mg/dL (70-105); Osmolality,Calculated 261 (280-300); Potassium 4.9 mEq/L (3.5-5.1); Sodium 125 mEq/L (136-145); eGFR For African Americans > 60 (> 60); eGFR For Non-African Americans > 60 (> 60)
[2020-07-13 00:23] LABS: Basophils % 0.3 %; Eosinophils # 0.1 K/mcL (0.0-0.6); Eosinophils % 1.8 %; Hematocrit 32.7 % (35.3-44.9); Hemoglobin 10.9 g/dL (11.5-15.4); Immature Granulocytes % 0.1 % (0-4); Lymphocytes # 2.1 K/mcL (0.6-4.6); Lymphocytes % 27.1 %; Mean Corpuscular HGB Conc 33.3 g/dL (31.6-35.5); Mean Corpuscular Hemoglobin 26.7 pg (28.0-33.3); Mean Corpuscular Volume 80.1 fL (83.0-100.0); Mean Platelet Volume 9.9 fL (9.4-12.4); Monocytes # 0.6 K/mcL (0.0-1.3); Monocytes % 8.1 %; Neutrophils # 4.9 K/mcL (1.6-8.9); Platelet Count 264 K/mcL (140-400); Red Blood Count 4.08 M/mcL (3.82-4.97); Red Cell Distribution Width 14.6 % (11.5-14.5); Segmented Neutrophils % 62.6 %; White Blood Count 7.8 K/mcL (4.3-11.1)
[2020-07-13 00:29] LABS: BUN/Creatinine Ratio 18 (6-26); Blood Urea Nitrogen 12 mg/dL (8-23); Calcium 8.7 mg/dL (8.6-10.3); Carbon Dioxide 29 mEq/L (23-29); Chloride 96 mEq/L (98-107); Glucose 127 mg/dL (70-105); Osmolality,Calculated 269 (280-300); Potassium 4.6 mEq/L (3.5-5.1); Sodium 129 mEq/L (136-145); eGFR For African Americans > 60 (> 60); eGFR For Non-African Americans > 60 (> 60)
[2020-07-13 00:43] LABS: Thyroid Stimulating Hormone 3.855 mcIU/mL (0.340-5.600)
[2020-07-13 05:55] LABS: BUN/Creatinine Ratio 17 (6-26); Blood Urea Nitrogen 10 mg/dL (8-23); Calcium 9.1 mg/dL (8.6-10.3); Carbon Dioxide 29 mEq/L (23-29); Chloride 98 mEq/L (98-107); Glucose 106 mg/dL (70-105); Osmolality,Calculated 273 (280-300); Potassium 4.5 mEq/L (3.5-5.1); Sodium 132 mEq/L (136-145); eGFR For African Americans > 60 (> 60); eGFR For Non-African Americans > 60 (> 60)
[2020-07-13] MEDS: hydrALAZINE 25 MG TABLET PO SCH ×2 (13:17→19:32)
[2020-07-13] MEDS ORDERED: Perflutren Lipid Microsphere 1.3 ML in 0.9 % Sodium Chloride 8.7 ML IVP PRN (16:03)
[2020-07-13] MEDS: *HR* Heparin 5,000 UNIT/ML VIAL SQ SCH (17:15)
[2020-07-13] MEDS ORDERED: *HR* LORazepam 2 MG/ML VIAL IVP ONE (17:26)
[2020-07-13] MEDS: Pregabalin 75 MG CAPSULE PO SCH (19:30)
[2020-07-13] MEDS ORDERED: Budesonide/Formoterol 160/4.5 1 PUFF INH IH SCH (20:00)
[2020-07-13] MEDS ORDERED: Melatonin 3 MG TABLET PO SCH (22:30)
[2020-07-14 01:58] LABS: Hematocrit 37.8 % (35.3-44.9); Hemoglobin 12.1 g/dL (11.5-15.4); Mean Corpuscular Hemoglobin 26.6 pg (28.0-33.3); Mean Corpuscular Volume 83.1 fL (83.0-100.0); Mean Platelet Volume 10.1 fL (9.4-12.4); Platelet Count 310 K/mcL (140-400); Red Blood Count 4.55 M/mcL (3.82-4.97); Red Cell Distribution Width 15.1 % (11.5-14.5); White Blood Count 8.5 K/mcL (4.3-11.1)
[2020-07-14 02:18] LABS: Alanine Aminotransferase 11 Units/L (7-52); Albumin/Globulin Ratio 1.5 (1.1-2.2); Alkaline Phosphatase 138 Units/L (34-104); Aspartate Amino Transferase 13 Units/L (13-39); BUN/Creatinine Ratio 10 (6-26); Bilirubin,Total 0.3 mg/dL (0.3-1.0); Blood Urea Nitrogen 6 mg/dL (8-23); Calcium 9.6 mg/dL (8.6-10.3); Carbon Dioxide 28 mEq/L (23-29); Chloride 98 mEq/L (98-107); Globulin 2.7 g/dL (2.4-3.5); Glucose 103 mg/dL (70-105); Osmolality,Calculated 274 (280-300); Sodium 133 mEq/L (136-145); Total Protein 6.7 g/dL (6.4-8.9); eGFR For African Americans > 60 (> 60); eGFR For Non-African Americans > 60 (> 60)
[2020-07-14] MEDS: *HR* Heparin 5,000 UNIT/ML VIAL SQ SCH (05:24)
[2020-07-14] MEDS ORDERED: Ascorbic Acid 500 MG TABLET PO SCH (09:00)
[2020-07-14] MEDS ORDERED: Metoprolol XL (24 HR) Succ 50 MG TAB.ER.24H PO SCH (09:00)
[2020-07-14] MEDS ORDERED: lisinopriL 10 MG TABLET PO SCH (09:00)
[2020-07-14] MEDS ORDERED: Perphenazine 2 MG TABLET PO SCH (09:00)
[2020-07-14] MEDS ORDERED: Cyanocobalamin (B-12) 1,000 MCG TABLET PO SCH (09:00)
[2020-07-14] MEDS ORDERED: Aspirin Enteric Coated 81 MG Tablet PO SCH (09:00)
[2020-07-14] MEDS: Pregabalin 75 MG CAPSULE PO SCH (09:15)
[2020-07-14] MEDS: hydrALAZINE 25 MG TABLET PO SCH (09:17)
[2020-07-14] MEDS ORDERED: Budesonide/Formoterol 160/4.5 1 PUFF INH IH SCH (10:00)
[2020-07-14 11:41] VITALS: BP 126/66
== END 2020-07-14 13:05 | disposition home health service (06) | DRG 641 ==
LOC: 3BNU → SUATTDRO 18:47
PROVIDERS: ADMIT Internal Medicine; ATTEND Registered Nurse